=== PATIENT | female | born 1990 | race Caucasian/White ===

== ENCOUNTER 2016-08-30 12:29 | Emergency (ER) | payer OTHER ==
[2016-08-30 13:48] VITALS: BP 122/77; PULSE 103; RESP 14; TEMP 98.6; O2SAT 98
[2016-08-30] MEDS ORDERED: IBUPROFEN 600 MG TAB PO ONE (14:09)
--- NOTE | 2016-08-30 14:13 | UCPHY ---
H & P Time Seen by Provider: 08/30/16 13:55 Patient Type: New HPI/ROS: CHIEF COMPLAINT: Sore throat HISTORY OF PRESENT ILLNESS: 25-year-old female presents to Urgent Care complaining of sore throat since yesterday morning. She denies dysphagia. She has felt feverish and chilled. She denies nasal congestion, rhinorrhea or cough. Denies chest pain or difficulty breathing. Denies abdominal pain or vomiting. REVIEW OF SYSTEMS: Constitutional: Subjective fevers, chills Eyes: No double or blurry vision. ENT: Sore throat as above. Respiratory: No cough, no shortness of breath. Cardiac: No chest pain. Gastrointestinal: No abdominal pain, vomiting or diarrhea. Genitourinary: No dysuria. Musculoskeletal: No neck or back pain. Skin: No rashes. Neurological: No headache. Past Medical/Surgical History: Social History: Single and lives in [place] Smoking Status: Never smoked Physical Exam: General Appearance: Alert, no distress. Afebrile. Eyes: Pupils equal and round. Extraocular motions are all intact. ENT: Mouth: Mucous membranes moist. Posterior pharyngeal injection and exudate noted. 2+ tonsils. No uvular shift or swelling. No muffled voice or trismus. Respiratory: No wheezing, rhonchi, or rales, lungs are clear to auscultation. Cardiovascular: Regular rate and rhythm. Gastrointestinal: Abdomen is soft and nontender, no masses, no rebound or guarding, bowel sounds normal. Neurological: Alert and oriented x 3, cranial nerves II through XII grossly intact Skin: Warm and dry, no rashes. Musculoskeletal: Nontender to palpate along the cervical, thoracic or lumbar spine. Neck is supple. Extremities: Full range of motion and no peripheral edema. Psychiatric: Patient is oriented X 3, there is no agitation. Constitutional: Initial Vital Signs Temperature (C) 37 C 08/30/16 13:44 Heart Rate 103 H 08/30/16 13:44 Respiratory Rate 14 08/30/16 13:44 Blood Pressure 122/77 H 08/30/16 13:44 O2 Sat (%) 98 08/30/16 13:44 O2 Delivery Mode Room Air Allergies/Adverse Reactions: acetaminophen [From Vicodin] Allergy (Verified 08/30/16 13:44) hydrocodone bitartrate [From Vicodin] Allergy (Verified 08/30/16 13:44) Home Medications: Medication Instructions Recorded Insulin NPH Hum/Reg Insulin Hm 08/30/16 Penicillin V Potassium [Penicillin 500 mg PO BID #20 tab 08/30/16 VK] Medical Decision Making ED Course/Re-evaluation: Rapid strep test was negative. I offered patient antibiotics to start now or she can wait into her throat culture comes back and fits positive start the antibiotics then. Patient has a history of frequent strep infections. She would like to start the antibiotics now. She has sore throat and subjective fevers and chills without nasal congestion, rhinorrhea or cough. She was started on penicillin 500 mg twice daily for 10 days. Discussed discarding toothbrush. She will return if she has any other concerns. Differential Diagnosis: Including but not limited to strep pharyngitis, viral upper respiratory infection, retropharyngeal abscess, mononucleosis, pneumonia, bronchitis - Data Points Laboratory Results: 08/30/16 08/30/16 Unknown 13:55 Group A Strep Screen NEGATIVE (NEGATIVE) Group A Strep DNA Pending Medications Given: Discontinued Medications Ibuprofen (Motrin) 600 mg PO EDNOW ONE Stop: 08/30/16 14:10 Last Admin: 08/30/16 14:46 Dose: 600 mg Departure - Departure Disposition: Home, Routine, Self-Care Clinical Impression: Exudative pharyngitis Condition: Good Instructions: Pharyngitis (ED) Additional Instructions: Penicillin 500 mg twice daily for 10 days. Ibuprofen 600 mg every 8 hours as needed for pain. Discard toothbrush after being on antibiotics for 48 hours and again when you done with antibiotics in 10 days. Referrals: [place],. [Primary Care Provider] - As per Instructions Prescriptions: Penicillin V Potassium [Penicillin VK] 500 mg PO BID #20 tab - PQRS PQRS Measurement: Not applicable
== END 2016-08-30 14:48 | disposition home or self-care (01) ==
LOC: CED 12:29
DX: J02.9 Acute pharyngitis, unspecified (principal)
CPT/HCPCS: 87880-PO; 99203-PO; G0463-PO